=== PATIENT | male | born 1990 | race Two or more races ===

== ENCOUNTER 2017-06-24 13:37 | Emergency (ER) | payer MEDICAID, OTHER, SELFPAY ==
[~2017-06-24] VITALS: Ht 167.6 cm; Wt 73.9 kg
[2017-06-24 13:39] VITALS: BP 136/93
[2017-06-24] MEDS ORDERED: LORazepam 1MG TABLET ONE (14:10)
[2017-06-24] MEDS ORDERED: LORazepam 1MG TABLET PO ONE (14:30)
[2017-06-24 14:36] LABS: HEMATOCRIT 49.2 % (39.2-51.8); HEMOGLOBIN 17.1 g/dL (13.7-18.0); WHITE BLOOD COUNT 6.6 x10^3/uL (3.4-10)
[2017-06-24 14:47] LABS: BLOOD UREA NITROGEN 8 mg/dL (7-18)
== END 2017-06-24 16:51 | disposition home or self-care (01) ==
LOC: EDBD 13:37 → ED 14:38
DX: H54.61 Unqualified visual loss, right eye, normal vision left eye (principal); F41.1 Generalized anxiety disorder
CPT/HCPCS: 36415; 70450; 80048; 82040; 85025; 93005; 99285

== ENCOUNTER 2019-04-06 22:38 | Emergency (ER) | payer MEDICAID ==
[~2019-04-06] VITALS: Ht 170.2 cm; Wt 76.9 kg
--- NOTE | 2019-04-06 23:32 | NUR ---
assessment made. chart up for MD to see. patient c/o diffused abdominal pain since yesterday. burning sensation as described. bloody stool / diarrhea all day.
[2019-04-06] MEDS ORDERED: ONDA4TAB13 SL (23:34)
[2019-04-06] MEDS ORDERED: SUCR1TAB33 PO (23:34)
[2019-04-06] MEDS ORDERED: PANT20TA2 PO (23:34)
--- NOTE | 2019-04-06 23:55 | NUR ---
cork slabs sawyer at bedside for blood draw.
--- NOTE | 2019-04-06 23:59 | NUR ---
urine sample obtained and sent to lab.
[2019-04-07 00:05] LABS: BASOPHILS # (AUTO) 0.02 x10^3/uL (0-0.1); BASOPHILS % (AUTO) 0 % (0-1); EOSINOPHILS # (AUTO) 0.06 x10^3/uL (0-0.4); EOSINOPHILS % (AUTO) 0 % (1-7); LYMPHOCYTES # (AUTO) 1.27 x10^3/uL (1-3.4); LYMPHOCYTES % (AUTO) 8 % (22-44); MD NO; MEAN CORPUSCULAR HEMOGLOBIN 30.8 pg (27.5-34.5); MEAN CORPUSCULAR VOLUME 90.4 fL (81-97); MONOCYTES # (AUTO) 0.55 x10^3/uL (0.2-0.8); MONOCYTES % (AUTO) 3 % (2-9); NEUTROPHILS # (AUTO) 14.85 x10^3/uL (1.8-6.8); NEUTROPHILS % (AUTO) 89 % (42-75); PLATELET COUNT 379 x10^3/uL (130-400); RED CELL DISTRIBUTION WIDTH 12.4 % (9.4-14.8)
[2019-04-07 00:06] LABS: MICROSCOPIC NOT IND
[2019-04-07 00:11] LABS: INTERNATIONAL NORMALIZED RATIO 0.98 (0.93-1.1); PROTHROMBIN TIME 10.3 Seconds (9.6-11.5)
[2019-04-07 00:12] LABS: CULTURE INDICATED? NO
[2019-04-07 00:12] LABS: ALANINE AMINOTRANSFERASE 37 U/L (12-78); ALBUMIN 4.4 g/dL (3.4-5.0); ANION GAP 4 mmol/L (5-15); CALCIUM 9.3 mg/dL (8.5-10.1); CHLORIDE 104 mmol/L (98-107); CREATININE 1.28 mg/dL (0.7-1.3)
[2019-04-07 00:15] LABS: ALKALINE PHOSPHATASE 125 U/L (45-117); BILIRUBIN,TOTAL 0.6 mg/dL (0.2-1.0)
--- NOTE | 2019-04-07 01:00 | NUR ---
ultrasound resulted. chart up for MD to re-eval.
[2019-04-07 01:10] VITALS: BP 129/79
--- NOTE | 2019-04-07 01:10 | NUR ---
ERP at bedside for re-eval.
--- NOTE | 2019-04-07 01:32 | NUR ---
patient discharged with prescription and instruction. verbalized understanding.
== END 2019-04-07 01:34 | disposition home or self-care (01) ==
LOC: ED 04-07 01:20
DX: K29.00 Acute gastritis without bleeding (principal)
CPT/HCPCS: 36415; 76700; 80053; 81003; 83690; 85025; 85610; 99284

== ENCOUNTER 2020-03-19 10:30 | Emergency (ER) | payer MEDICAID ==
[~2020-03-19] VITALS: Ht 167.6 cm; Wt 83.8 kg
[~2020-03-19 10:30] MED LIST: ONDA4TAB13 SL; PANT20TA2 PO; SUCR1TAB33 PO
--- NOTE | 2020-03-19 10:59 | NUR ---
FIRST CONTACT WITH PT. PT C/O R HAND PAIN/SWELLING "A TIRE FELL ON TOP OF IT MONDAY" PT'S AOX4. RESPS EVEN AND UNLABORED. DENIES ANY OTHER SX.
--- NOTE | 2020-03-19 11:04 | NUR ---
ICE APPLIED AT THIS TIME.
[2020-03-19 11:38] VITALS: BP 133/88
--- NOTE | 2020-03-19 11:39 | NUR ---
BREAK RN FOR PRIMARY RN KOBE. PT RESTING IN POSITION OF COMFORT. AWAITING XRAY RESULTS. VSS. RATES PAIN 8/10 IN HAND. RUE ELEVATED WITH ICE PACK IN PLACE. CMS INTACT. RADIAL PULSE NORMAL AND STRONG. +SWELLING RIGHT HAND. REFUSES NEED FOR PAIN MEDICATION AT THIS TIME. DENIES NEED TO USE RESTROOM. CALL LIGHT IN REACH. FALL PRECAUTIONS IN PLACE.
--- NOTE | 2020-03-19 12:02 | NUR ---
MD ORDERED REPEAT XRAY. PT UPDATED IN POC. AWAITING RAD.
--- NOTE | 2020-03-19 12:12 | NUR ---
BEDSIDE REPORT AND CARE BACK TO PRIMARY RN KOBE
--- NOTE | 2020-03-19 12:16 | NUR ---
REPORT RECEIVED FROM DINO BAEZ.
--- NOTE | 2020-03-19 12:27 | NUR ---
SPLINT APPLIED BY EMT AT THIS TIME. PT TOLERATED WELL.
--- NOTE | 2020-03-19 13:28 | NUR ---
pt sitting on chair. pt's aox4. resps even and unlabored.
--- NOTE | 2020-03-19 14:11 | NUR ---
Patient given discharge instructions and they have confirmed that they understand the instructions. Patient ambulatory with steady gait.
== END 2020-03-19 14:12 | disposition home or self-care (01) ==
LOC: ED 11:06
DX: S62.316A Displaced fracture of base of fifth metacarpal bone, right hand, initial encounter for closed fracture (principal); X58.XXXA Exposure to other specified factors, initial encounter; Y93.89 Activity, other specified; Y92.89 Other specified places as the place of occurrence of the external cause; Y99.8 Other external cause status
CPT/HCPCS: 26605; 99284